=== PATIENT | female | born 1955 | race Two or more races ===

== ENCOUNTER 2022-06-17 12:15 | Outpatient (CLI) | payer OTHER ==
[~2022-06-17 12:15] MED LIST: CLARITIN10 M1; LIPITOR20 MG; MEDROL8 MG
== END 2022-06-17 12:21 | disposition home or self-care (01) ==
LOC: SONOGRAMA 12:15
PROVIDERS: ATTEND Otolaryngology
DX: C73 Malignant neoplasm of thyroid gland (principal)

== ENCOUNTER 2022-07-11 09:20 | Outpatient (CLI) | payer OTHER | END 2022-07-11 09:23 | disposition home or self-care (01) | LOC: SONOGRAMA 09:20 | PROVIDERS: ATTEND Pathology Anatomic Pathology & Clinical Pathology | DX: C73 Malignant neoplasm of thyroid gland (principal) ==

== ENCOUNTER 2022-08-14 08:15 | Inpatient (IN) | payer OTHER ==
[~2022-08-14] VITALS: Ht 165.1 cm; Wt 74.4 kg
[2022-08-14] MEDS ORDERED: VITAMIN D PO (10:21)
[2022-08-14] MEDS ORDERED: ZESTRIL5 MG PO (10:21)
[2022-08-19] MEDS ORDERED: VITAMIN D325 MC2 (08:09)
[2022-08-19] MEDS ORDERED: ZOLEDRONIC5 MG/100 M (08:10)
== END 2022-08-20 13:38 | disposition home or self-care (01) | DRG 627 ==
LOC: SURH 08-16 08:15 → O/R 08-19 05:50 → SURH 08-19 07:00 → SURG 08-19 14:49
PROVIDERS: ADMIT Otolaryngology; ATTEND Otolaryngology
PROC: 07T10ZZ Resection of Right Neck Lymphatic, Open Approach (ICD-10-PCS; 2022-08-19)
PROC: 0GTH0ZZ Resection of Right Thyroid Gland Lobe, Open Approach (ICD-10-PCS; principal; 2022-08-19 07:00)
DX: C73 Malignant neoplasm of thyroid gland (principal); Z20.822 Contact with and (suspected) exposure to COVID-19

== ENCOUNTER 2022-10-30 12:25 | Outpatient (CLI) | payer OTHER ==
[~2022-10-30 12:25] MED LIST changes: +VITAMIN D PO; +VITAMIN D325 MC2; +ZESTRIL5 MG PO; +ZOLEDRONIC5 MG/100 M
== END 2022-10-30 12:28 | disposition home or self-care (01) ==
LOC: NUCLEAR 12:25
PROVIDERS: ATTEND Internal Medicine Sports Medicine
DX: C73 Malignant neoplasm of thyroid gland (principal)
CPT/HCPCS: 79005; A9517

== ENCOUNTER 2022-11-06 12:28 | Outpatient (CLI) | payer OTHER | END 2022-11-06 12:30 | disposition home or self-care (01) | LOC: NUCLEAR 12:28 | PROVIDERS: ATTEND Internal Medicine Sports Medicine | DX: C73 Malignant neoplasm of thyroid gland (principal) | CPT/HCPCS: 78015; A9531 ==

== ENCOUNTER 2022-11-18 11:43 | Outpatient (CLI) | payer OTHER | END 2022-11-18 11:48 | disposition home or self-care (01) | LOC: RAD 11:43 | PROVIDERS: ATTEND Physical Medicine & Rehabilitation | DX: M54.2 Cervicalgia (principal); M54.6 Pain in thoracic spine ==

== ENCOUNTER 2023-08-26 10:07 | Outpatient (CLI) | payer OTHER | END 2023-08-26 10:13 | disposition home or self-care (01) | LOC: RAD 10:07 | DX: R06.09 Other forms of dyspnea (principal) ==

== ENCOUNTER 2024-03-19 13:26 | Outpatient (CLI) | payer OTHER | END 2024-03-19 13:27 | disposition home or self-care (01) | LOC: SONOGRAMA 13:26 | PROVIDERS: ATTEND Physical Medicine & Rehabilitation | DX: M75.31 Calcific tendinitis of right shoulder (principal); M77.8 Other enthesopathies, not elsewhere classified ==